=== PATIENT | male | born 1985 | race Caucasian/White ===

== ENCOUNTER 2020-12-08 13:12 | Emergency (ER) | payer BC, SELFPAY ==
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
[2020-12-08 13:26] VITALS: BP 153/81; PULSE 71; RESP 16; TEMP 36.7; O2SAT 98
[2020-12-08] MEDS: KETOROLAC (*BKC) 60 MG/2 ML VIAL IM (14:22)
[2020-12-08] MEDS: diazePAM (*CRX) 5 MG TABLET PO (14:22)
--- NOTE | 2020-12-08 15:23 | ED.GENADULT ---
HPI - General Adult General Chief complaint: Extremity Injury, Upper Stated complaint: right shoulder injury Time Seen by Provider: 12/08/20 13:21 Source: patient and family Mode of arrival: ambulatory Limitations: no limitations History of Present Illness HPI narrative: Patient is a 35-year-old male who presents to emergency department for evaluation of right shoulder mid back and right rib pain after rolling a [id number] while doing doughnuts last night patient on arrival to emergency department is in the room in no distress notes aching pain worse with activity or movement patient denies syncope head injury loss of consciousness patient on arrival is in the room in no distress Related Data Home Medications Medication Instructions Recorded Confirmed No Home Medications 12/08/20 12/08/20 Allergies Allergy/AdvReac Type Severity Reaction Status Date / Time No Known Allergies Allergy Unknown Verified 12/08/20 13:24 Review of Systems Review of Systems: All systems reviewed & are unremarkable except as noted in HPI and below PMFSH Social History Social History Gender identity (if verbalized by the patient): Male Exam Narrative: Exam Narrative: GENERAL: Well-appearing, well-nourished, and in no acute distress. HEAD: Normocephalic, atraumatic. EYES: PERRLA and EOMI. ENT: Nares clear, no rhinorrhea or epistaxis. Mucous membranes moist. NECK: Supple. No adenopathy or masses. CHEST: Clear to auscultation. No respiratory distress. No wheezes rales or rhonchi HEART: Regular rate and rhythm. No murmur heard. Normal peripheral pulses. ABDOMEN: Soft, nontender, nondistended EXTREMITIES: Normal range of motion. No edema. No midline cervical tenderness no lumbar midline tenderness mid scapular thoracic tenderness. Tenderness of the right rotator cuff musculature no deformities noted SKIN: Warm, dry, no rash. NEURO: No focal deficits. Alert and oriented x3. Neurovascularly intact PSYCH: Normal mood and affect. Course Course Emergency Course: Patient in the room in no distress aware of case findings treatment plan diagnosis Vital Signs Vital signs: Vital Signs Temperature 98.1 F 12/08/20 13:26 Pulse Rate 71 12/08/20 13:26 Respiratory Rate 16 12/08/20 13:26 Blood Pressure 153/81 H 12/08/20 13:26 Pulse Oximetry 98 12/08/20 13:26 Temperature 98.1 F 12/08/20 13:26 Pulse Rate 71 12/08/20 13:26 Respiratory Rate 16 12/08/20 13:26 Blood Pressure 153/81 H 12/08/20 13:26 Pulse Oximetry 98 12/08/20 13:26 Medical Decision Making MDM Narrative Medical decision making narrative: Patients injury or pain is consistent with musculoskeletal etiology. No signs of neurological or vascular compromise on exam. Compartments and tisues are soft without signs of compartment syndrome. Pain is felt appropriate for further evaluation on an outpatient basis. ABCs intact vital signs intact and stable Vital Signs Vital Signs: Vital Signs Temperature 98.1 F 12/08/20 13:26 Pulse Rate 71 12/08/20 13:26 Respiratory Rate 16 12/08/20 13:26 Blood Pressure 153/81 H 12/08/20 13:26 Pulse Oximetry 98 12/08/20 13:26 Temperature 98.1 F 12/08/20 13:26 Pulse Rate 71 12/08/20 13:26 Respiratory Rate 16 12/08/20 13:26 Blood Pressure 153/81 H 12/08/20 13:26 Pulse Oximetry 98 12/08/20 13:26 Imaging Data Radiologist's impression: ITS Impressions Thoracic Spine X-Ray 12/08/20 14:21 IMPRESSION: 1. Possible acute right 11th nondisplaced rib fracture posteriorly. 2. Mild thoracic levocurvature. Ribs w/Chest X-Ray 12/08/20 14:23 IMPRESSION: 1. Possible right 11th rib fracture posteriorly. 2. Right midclavicular fracture which appears healed. Shoulder X-Ray 12/08/20 14:28 IMPRESSION: 1. XR shoulder RT min 2V exam without acute osseous findings. 2. Right midclavicular fracture, appears chronic, healed.
== END 2020-12-08 15:30 | disposition home or self-care (01) ==
PROVIDERS: Emergency Provider Emergency Medicine
DX: S49.91XA Unspecified injury of right shoulder and upper arm, initial encounter (principal); S22.31XA Fracture of one rib, right side, initial encounter for closed fracture; V86.55XA Driver of 3- or 4- wheeled all-terrain vehicle (ATV) injured in nontraffic accident, initial encounter
CPT/HCPCS: 71046; 71100; 72072; 73030; 96372; 99284; A9270; J1885